=== PATIENT | female | born 2000 | race Caucasian/White ===

== ENCOUNTER 2022-08-10 10:43 | Emergency (ER) | payer MEDICAID, SELFPAY ==
[2022-08-10] VITALS (15 sets, daily range): BP systolic 103–126; BP diastolic 64–89; PULSE 93–112; RESP 18; TEMP 36.8; O2SAT 95–100
--- NOTE | 2022-08-10 10:45 | W.ED.GENAD ---
Discharge Plan Disposition Patient Disposition: Home Discharge Details Clinical Impression: Discomfort of right eye Primary Care Provider: Olga,Local ED Provider: Olivier Gutierrez Home Meds and New Rx's Prescriptions: No Action No Known Home Meds Discharge Instructions Additional Instructions: Please read all of the information that accompanies these instructions. You were seen in the emergency department for your eye pressure. The pressures inside of your right eye were completely normal. Please schedule an appointment with your nurse chemical dependency or programmer or analyst next week for reassessment. Please return to the emergency department if develop any weakness in any of your extremities and any fevers nor any other concerns. Medical Decision Making This is an overall well-appearing mildly tachycardic but normothermic previously healthy 22-year-old female with corrective lenses but no contacts with pressure behind her right eye concerning for the possibility of migraine headache. She has no sudden onset headache to suggest subarachnoid hemorrhage. She does have a history of migraine headaches and this is certainly a possibility. She had no raised intraocular pressure to suggest acute angle-closure glaucoma. Given no headache my suspicion for cluster headache is low so I did not treat with oxygen. She has no neurological deficits nor any vascular risk factors so my suspicion is exceedingly low for CVA. No Yusuf sign to suggest globe rupture. No hypopyon to suggest endophthalmitis. No significant visual changes so I am not concerned for central retinal arterial occlusion. She is not a diabetic so my suspicion is exceedingly low for central exam retinal venous occlusion and no obvious blood and thunder on ophthalmoscope. Given no headache, not recently , and no oral contraceptive I am not concerned for cerebral venous sinus thrombosis. She is not markedly obese so my suspicion is low for idiopathic intracranial hypertension. She had no significant trauma to her eye and no sign of any conjunctival abrasion. She had no nuchal rigidity nor fevers to suggest meningitis. She does have an eye care provider in [facility] and I advised her to follow-up in the next week to ensure that her vision has not changed and that she does not require changes to her prescriptions. 11:25 AM Patient's tachycardia resolved spontaneously in the ED. HPI General Date/Time Provider Initiated Documentation: 08/10/22 10:44. HPI Narrative: This is a 22-year-old female with no past medical history up-to-date with her immunizations arriving via private vehicle in the setting of pressure to her right eye that began 2 nights ago. Patient has history of migraine headaches. She reports that she does not have a headache at this point time. She has not recently been vomiting. She denies any specific trauma to her right eye. She has no prior history of similar symptoms. She has had no recent URI symptoms or any fevers. She takes no routine medications and has no allergies. She denies oral contraceptive pills but she does use the Depo shot. She denies nausea vomiting dysuria and frequency. She does not wear contact lenses. She denies routine tobacco, ethanol, and illicits. She took ibuprofen yesterday. She has had no changes in her vision. Related Data Home Medications Medication Instructions Recorded Confirmed Unknown [No Known Home Meds] 08/10/22 08/10/22 Allergies Allergy/AdvReac Type Severity Reaction Status Date / Time No Known Allergies Allergy Unverified 08/10/22 10:49 PFS All Active Problems (Updated 08/10/22 @ 11:13 by Olivier Gutierrez MD) Discomfort of right eye (Acute) Social History Smoking risk assessment performed?: No Alcohol Intake: never Drug use: Never Substance use type: does not use Do you feel safe at home: No Do you feel safe in your relationship?: No Exam Narrative Exam Narrative: General: Well-appearing in no acute distress speaking in complete sentences. Head: Normocephalic, atraumatic. Eye: Pupils equal, round reactive to light. Extraocular eye movements intact. No conjunctival injection. No scleral icterus. On external inspection Lids and lashes appear intact. On fluorescein stain no increased uptake and no signs of conjunctival abrasion. On slit-lamp exam anterior chamber is deep and quiet with no cells nor flare. No hyphema. No hypopyon. No Yusuf's sign. On Jay-Pen exam patient has normal right-sided intraocular pressure at 10 mmHg. Visual acuity documented by nursing with patient's corrective lenses were 20/40 bilaterally. Right eye was 20/50. Left eye was 20/40. On direct ophthalmoscope exam patient had no blood and thunder. She was not able to tolerate her direct ophthalmoscope exam so was not able to assess her cup-to-disc ratio. Ear, nose, mouth, throat: Grossly normal inspection. Normal voice, handling secretions normally. Neck: Trachea midline. Cardiovascular: Well-perfused distal extremities. Respiratory: Nonlabored respiration. Gastrointestinal: Nondistended abdomen. Musculoskeletal: No edema. Moving all 4 extremities spontaneously. Skin: Normal for age and race, grossly normal temperature and turgor. No acute rash. Neurologic: Alert and appropriate, no apparent acute deficits. Cranial nerves II through XII intact grossly. No pronator drift. 5 out of 5 bilateral upper and lower extremity strength. No dysmetria. No dysdiadochokinesia. Psychiatric: Mood and manner are appropriate. Grooming and personal hygiene are appropriate.
[2022-08-10] MEDS: Tetracaine 0.5% 4 ML BTL OP (11:09)
[2022-08-10] MEDS: Fluorescein STRIPS 100/BOX 1 MG OP (11:10)
[2022-08-10] MEDS: Ibuprofen 200 MG TAB 400 MG PO (11:16)
[2022-08-10] MEDS: Acetaminophen 500 MG TAB 1000 MG PO (11:16)
== END 2022-08-10 11:32 | disposition home or self-care (01) ==
LOC: ER 17:32
PROVIDERS: Emergency Provider Emergency Medicine
DX: H57.11 Ocular pain, right eye (principal)
CPT/HCPCS: 99283

== ENCOUNTER 2023-03-14 14:48 | Emergency (ER) | payer MEDICAID, SELFPAY ==
[2023-03-14 14:54] VITALS: BP 126/87; PULSE 97; RESP 18; TEMP 37.2; O2SAT 98
--- NOTE | 2023-03-14 15:02 | ED.GENADUL_ITS ---
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 TRENT: 4 Date/Time Provider Initiated Documentation: 03/14/23 14:51. Limitations to Documentation: no limitations. Information obtained by: patient. History of Present Illness late period week(s) (1) constant No relieving factors improve symptom(s), No exacerbating factors reported other (intermittent lower abdominal cramping, nausea) none Related Data Home Medications Medication Instructions Recorded Confirmed Unknown [No Known Home Meds] 08/10/22 03/14/23 Allergies Allergy/AdvReac Type Severity Reaction Status Date / Time No Known Allergies Allergy Unverified 03/14/23 14:56 Review of Systems All systems reviewed & are unremarkable except as noted in HPI and below Constitutional Constitutional: Denies chills, Denies fever(s) and Denies weakness Cardiovascular Cardiovascular: Denies chest pain and Denies dyspnea Respiratory Respiratory: Denies cough and Denies dyspnea Gastrointestinal Gastrointestinal: Denies abdominal pain and Denies vomiting Musculoskeletal Musculoskeletal: Denies joint swelling Integumentary/Breasts Skin/Breast: Denies rash Neurologic Neurologic: Denies weakness PFSH All Active Problems (Updated 03/14/23 @ 16:00 by Sotero Vallecillo MD) Late period (Acute) test negative (Acute) Social History Smoking/Tobacco Use Status: Never Smoking risk assessment performed?: Yes Alcohol Intake: never Drug use: Never Substance use type: does not use Do you feel safe at home: Yes Do you feel safe in your relationship?: Yes Exam Const General: no acute distress Orientation: alert HENMT Head: normal to inspection Ears: external ears normal General nose exam: external nose normal Mouth: moist mucous membranes Eyes General: appearance normal, both eyes and all related structures Neck Neck: normal visual inspection Resp Effort & Inspection: normal respiratory effort and able to speak in complete sentences Cardio Rate: regular rate GI Palpation: soft and nontender Skin General skin exam: no rashes or lesions noted Neuro General: patient alert and patient oriented x3 Extrem General: normal to inspection Psych Mental Status: mental status grossly normal Course Vital Signs Vital signs: Vital Signs Temperature 37.2 C 03/14/23 14:54 Pulse 97 H 03/14/23 14:54 Respiratory Rate 18 03/14/23 14:54 Blood Pressure 126/87 03/14/23 14:54 Pulse Oximetry 98 03/14/23 14:54 Temperature 37.2 C 03/14/23 14:54 Temperature Source Skin 03/14/23 14:54 Pulse 97 H 03/14/23 14:54 Respiratory Rate 18 03/14/23 14:54 Respiratory Effort Normal, Non-Labored 03/14/23 14:56 Blood Pressure 126/87 03/14/23 14:54 Blood Pressure Position Sitting 03/14/23 14:54 Pulse Oximetry 98 03/14/23 14:54 Oxygen Delivery Method Room Air 03/14/23 14:54 Oxygen Flow Rate 0 03/14/23 14:54 Pain Level 2 03/14/23 14:54 Medical Decision Making 23 yo female who has had one prior and has one child comes in requesting test. She states she last had her period 02/03 through 02/07 and none since and usually is regular with periods. HAs had intermittent lower abgdominal cramping and nausea. No vomiting, no fevers, has no symptoms now, states she took one test at home and couldn't determine if it was positive. Soft abdomen without tenderness so doubt surgical pathology, will check hcg pt stable laying in the stretcher and asymptomatic, negative , stable for d/c, advised to f/u with pcp and return precautions given Differential Diagnosis Differential Diagnosis: , gastroenteritis Lab Data Lab results reviewed: Yes I reviewed the patient's lab results. 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
[2023-03-14 15:43] LABS: HCG Quant, Pregnancy < 1 mIU/mL (1-3)
== END 2023-03-14 16:07 | disposition home or self-care (01) ==
PROVIDERS: Emergency Provider Emergency Medicine
DX: R10.9 Unspecified abdominal pain (principal); R11.0 Nausea; N91.2 Amenorrhea, unspecified
CPT/HCPCS: 99283; 84702

== ENCOUNTER 2024-02-11 12:04 | Outpatient (CLI) | payer MEDICAID, SELFPAY ==
[2024-02-11 12:07] VITALS: BP 139/85; PULSE 99; RESP 18; TEMP 36.4; O2SAT 97
[2024-02-11 13:03] VITALS: BP 127/70; PULSE 97
[2024-02-11 13:06] VITALS: BP 127/70; PULSE 97
--- NOTE | 2024-02-11 13:15 | ED.GENADUL_ITS ---
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 Date/Time Provider Initiated Documentation: 02/11/24 12:08 . Limitations to Documentation: no limitations . Information obtained by: patient, family and old records reviewed . HPI Narrative: HPI: This is a 24-year-old female patient, G2, P1 at 33 weeks gestation by ultrasound, who is presenting for evaluation of abdominal pain and concern for active labor. The patient reports that for the last few weeks, since the beginning of December, she has had abdominal pain that seems to wax and wane similar to contractions. She has noted some increased mucus but has not had a loss of fluids or vaginal bleeding. She feels movement every day, and has not had any other symptoms such as fever, chills, trauma, etc. The patient reports that she she follows at [facility], has had evaluations by her INTERIOR DESIGN PROGRAM CHAIR up there, but is concerned given her ongoing symptoms. She presented for evaluation here without any significant change in her complaints. She has not had any anticipated concerns, her last child was delivered at 35 or 36 weeks without difficulty. She does not use any nicotine, alcohol, or other substances. Exam: Gen: Awake and alert, in no apparent distress HEENT: Non-icteric sclera Neck: Supple Lungs: No apparent respiratory distress, normal respiratory effort. CV: Appears well perfused, heart with regular rate and rhythm, strong distal pulses Abdomen: Gravid, soft, nontender to palpation. The patient's uterus is not erlin at the time of this provider's examination. Uterine fundus is palpable several centimeters above the umbilicus. : A supervised cervical evaluation was performed in the presence of MIDDLEWARE ENGINEER Tasneem, revealing normal external female genitalia, a 1 cm dilated cervical os, with no presenting part. MSK: Moves 4 extremities without apparent limitation in ROM Skin: Visualized skin without rashes, cyanosis. Neuro: Normal Gait, no obvious focal deficits or facial asymmetry. Speaks in full, clear sentences. Psych: Appropriate for situation. MDM: This is a 24-year-old female patient presenting for evaluation of abdominal pain in . Differential includes but is not limited to early active labor, [place] contractions, certainly considered other abno rmalities including placental abruption, distress, etc. The patient has no fevers or chills to increase my concern for sepsis or intrauterine infections. She did have a slightly elevated blood pressure on her initial check, 139/85, which decreased to 127/70 on recheck. As it is not sustained I have a low concern for preeclampsia, help syndrome, etc. ED Course: [id number] ultrasound demonstrates an appropriate heart rate, and given that this patient is not at risk for imminent delivery, we did reach out to INTERIOR DESIGN PROGRAM CHAIR. They recommended transfer to the center for monitoring, NST, and the patient was transferred from this department without incident. Bessie Cagle MD Related Data Home Medications ?Medication ?Instructions ?Recorded ?Confirmed Unknown [No Known Home Meds] 08/10/22 02/11/24 Allergies Allergy/AdvReac Type Severity Reaction Status Date / Time No Known Allergies Allergy Unverified 02/11/24 12:10 General Stated Complaint: INTERIOR DESIGN PROGRAM CHAIR TRENT: 3 Course Vital Signs Vital signs: Vital Signs Temperature 36.4 C 02/11/24 12:07 Pulse 99 H 02/11/24 12:07 Respiratory Rate 18 02/11/24 12:07 Blood Pressure 139/85 02/11/24 12:07 Pulse Oximetry 97 02/11/24 12:07 Temperature 36.4 C 02/11/24 12:07 Temperature Source Oral 02/11/24 12:07 Pulse 97 H 02/11/24 13:06 Pulse 97 02/11/24 13:03 Respiratory Rate 18 02/11/24 12:07 Respiratory Effort Normal, Non-Labored 02/11/24 12:25 Blood Pressure 127/70 02/11/24 13:06 Blood Pressure 127/70 02/11/24 13:03 Blood Pressure Position Sitting 02/11/24 12:07 Pulse Oximetry 97 02/11/24 12:07 Oxygen Delivery Method Room Air 02/11/24 12:07 Oxygen Flow Rate 0 02/11/24 12:07 Pain Level 4 02/11/24 12:26 Lab/Test Results Lab/Test Results: 02/11/24 13:12 Vaginal Vaginitis Screen - Pending Medical Decision Making Quality:SDOH Health Related Social Needs: No Data to Display PFSH All Active Problems (Updated 02/11/24 @ 15:31 by Bessie Cagle MD) Abdominal pain during (Acute) Social History Smoking/Tobacco Use Status: Never Smoking risk assessment performed?: Yes Alcohol Intake: never Drug use: Never Substance use type: does not use Do you feel safe at home: Yes Do you feel safe in your relationship?: Yes POCUS Exam (ED) Limited OB Exam DATE OF EXAM:: 02/11/24 TIME OF EXAM:: 12:30 PROVIDER THAT PERFORMED THE STUDY: Bessie Cagle IS THIS A REPEAT EXAM DURING THIS ENCOUNTER: No Type of Exam: Pelvic OB Trans Abdominal REASON FOR EXAM: Abdominal Pain VISUALIZED STRUCTURES: Poll, Gestational sac and Uterus PERTINENT FINDINGS/IMPRESSION: cardiac activity Exam Complete.
--- NOTE | 2024-02-11 21:54 | W.OBNST ---
Date of service: 02/11/24 Time of Service: 13:00 NST Evaluation Reason for NST Reasons for Nonstress Test: FALSE LABOR and LABOR Gestational Age Gestational Age in Weeks and Days: 33 Weeks and 3Days Test and Monitor Explained Test/Monitor Explained: Test Explained, Monitor Explained and Patient Verbalized Understanding Vital Signs Blood Pressure: 127/70 Pulse: 97 Urine Results Urine Protein: Negative Urine Ketones: Negative Urine Glucose: Negative Urine Blood: Negative NST Information Date on Monitor: 02/11/24 Time on Monitor: 12:48 Date off Monitor: 02/11/24 Time off Monitor: 14:47 Total Time on Monitor: 119 NST Interventions: PO Hydration Contraction Frequency: 4-43/irritability NST Evaluation Patient States Movement: Present FHR Baseline: 140 Variability: Moderate 6-25 bpm Accelerations: 15x15 Decelerations: None NST Results: Reactive Note Ultrasound Done: N/A. NST Note Note: Pt arrived at the ED due to abdominal pain. She is a P1 @32wks GA who has had care at [facility] but came here because she didn't feel like they were listening to her. She reports feeling cramping and pelvic pain for 5 days. Today she feels a little more pelvic pressure. Good movement. Denies loss of fluid or unusual discharge, irritation or itching. Cx:. Vag path negative. NST shows uterine irritability but no regular ctxs. Pt monitored for several hours and requested discharge to home. She plans to f/u here to establish care for the remained of the and scheduled an appt on . NST Reviewed and Verified by: Cher Flores
[2024-02-11 21:58] VITALS: BP 127/70; PULSE 97
== END 2024-02-11 14:55 ==
LOC: ER 12:38 → BCD 12:38 → OBS 12:43
PROVIDERS: Emergency Provider Emergency Medicine; PCP Pediatrics; Visit Provider Obstetrics & Gynecology
DX: O47.03 False labor before 37 completed weeks of gestation, third trimester (principal); Z3A.33 33 weeks gestation of pregnancy
CPT/HCPCS: 59025; 76815; 87480; 87510; 87660

== ENCOUNTER 2024-02-12 10:32 | Outpatient (CLI) | payer MEDICAID, SELFPAY ==
[2024-02-12 10:56] VITALS: BP 128/69; PULSE 96; TEMP 36.9
[2024-02-12 11:08] VITALS: BP 128/69; PULSE 96
[2024-02-12 11:15] LABS: Bilirubin Negative (Negative); Blood Negative (Negative); Clarity Clear (Clear); Glucose Negative (Negative); Ketones Negative (Negative); Leukocyte Esterase Moderate (Negative); Nitrite Negative (Negative); Specific Gravity 1.015 (1.005-1.025); Urobilinogen 0.2 mg/dL (Up to 0.2); pH 8.5 (5-8)
[2024-02-12 11:22] LABS: Bacteria Few HPF (Negative); C & S Indicated? No/Sq. Contamination; Casts Negative LPF (Negative); Crystals Negative HPF (Negative); Epithelial Cells Moderate HPF (Negative); Mucus Negative (Negative); RBC Negative HPF (0-2)
--- NOTE | 2024-02-12 12:26 | PDOC.NST_ITS ---
Date of service: 02/12/24 Time of Service: 12:29 NST Evaluation Reason for NST Reasons for Nonstress Test: LABOR Gestational Age Gestational Age in Weeks and Days: 34 Weeks and 2Days Test and Monitor Explained Test/Monitor Explained: Test Explained, Monitor Explained and Patient Verbalized Understanding Vital Signs Blood Pressure: 128/69 Pulse: 96 Temperature: 98.4 F NST Information Date on Monitor: 02/12/24 Time on Monitor: 10:50 Date off Monitor: 02/12/24 Time off Monitor: 11:33 Total Time on Monitor: 43 NST Interventions: PO Hydration NST Evaluation Patient States Movement: Present FHR Baseline: 145 Variability: Moderate 6-25 bpm Accelerations: 15x15 Decelerations: None NST Results: Reactive Note Ultrasound Done: N/A. NST Note Note: Amy was evaluated at the ED yesterday for abdominal pain and rule out labor. She had two cervical exams yesterday and reports scant brown spotting last night. It did not increase this morning. neg vaginal pathogen screen . clean catch sent for UA and culture. She continues to experience cramping. Mild irregular contractions seen and reactive NST. Cervix is unchaged from yesterday. 1 cm/20%/-3 soft. Patient status reviewed with Drs. Flores and Jimbo. Susana weiner was instructed to rest and discontinue work at this time. RTO on 02/15. She is planning to transfer her care to [facility] and that appointment has been scheduled. Signs of labor reviewed. NST Reviewed and Verified by: Racquel Stark
[2024-02-12 12:30] VITALS: BP 128/69; PULSE 96; TEMP 36.9
== END 2024-02-12 11:56 | disposition other institution (70) ==
LOC: BCD 10:34 → OBS 10:53
PROVIDERS: PCP Pediatrics; Visit Provider Advanced Practice Midwife
DX: O26.853 Spotting complicating pregnancy, third trimester (principal); O47.03 False labor before 37 completed weeks of gestation, third trimester; Z3A.34 34 weeks gestation of pregnancy
CPT/HCPCS: 59025; 81003; 81015

== ENCOUNTER 2024-02-22 14:55 | Outpatient (CLI) | payer MEDICAID, SELFPAY ==
[2024-02-22 15:03] VITALS: BP 120/65; PULSE 97; TEMP 36.8
[2024-02-22 15:08] VITALS: BP 120/65; PULSE 97
[2024-02-22 16:10] LABS: Bilirubin Negative (Negative); Blood Negative (Negative); Clarity Clear (Clear); Glucose Negative (Negative); Ketones Negative (Negative); Leukocyte Esterase Negative (Negative); Nitrite Negative (Negative); Specific Gravity 1.015 (1.005-1.025); Urobilinogen 0.2 mg/dL (Up to 0.2)
[2024-02-22 20:16] LABS: Hemoglobin A1C 4.8 % (<5.7)
--- NOTE | 2024-02-22 21:10 | PDOC.NST_ITS ---
Date of service: 02/22/24 Time of Service: 21:10 NST Evaluation Reason for NST Reasons for Nonstress Test: OTHER, SEE COMMENT Reason for NST Other: rule out labor Gestational Age Gestational Age in Weeks and Days: 35 Weeks and 0Days Test and Monitor Explained Test/Monitor Explained: Test Explained, Monitor Explained and Patient Verbalized Understanding Vital Signs Blood Pressure: 120/65 Pulse: 97 Temperature: 98.2 F NST Information Date on Monitor: 02/22/24 Time on Monitor: 15:08 Date off Monitor: 02/22/24 Time off Monitor: 16:31 Total Time on Monitor: 83 NST Interventions: PO Hydration Contraction Frequency: 3-7 NST Evaluation Patient States Movement: Present FHR Baseline: 140 Variability: Moderate 6-25 bpm Accelerations: 15x15 Decelerations: None NST Results: Reactive Note Ultrasound Done: N/A. NST Note Note: Amy called with report of regular contractions at 35 weeks. She has irregular mild contractions every 3-5 minutes. Reactive NST. SVE performed. Cer vix 1 cm/25%/-3. Signs of labor reviewed. Blood work drawn for type and screen and hgb A1C. RTO tomorrow for office visit and GBS. NST Reviewed and Verified by: Racquel Stark
[2024-02-22 21:12] VITALS: BP 120/65; PULSE 97; TEMP 36.8
[2024-02-25 10:20] LABS: Varicella IgG Antibody Positive (See Note)
== END 2024-02-22 16:34 ==
LOC: BCD 15:02 → OBS 15:02
PROVIDERS: PCP Pediatrics; Visit Provider Advanced Practice Midwife
DX: O47.03 False labor before 37 completed weeks of gestation, third trimester (principal); Z3A.35 35 weeks gestation of pregnancy
CPT/HCPCS: 59025; 86787; 86850; 86900; 86901; 81003; 83036; 86870; 87086